=== PATIENT | male | born 1975 | race Hispanic/Latino ===

== ENCOUNTER 2017-10-04 20:17 | Emergency (ER) | payer OTHER ==
[2017-10-04 20:40] VITALS: BP 134/77; PULSE 86; RESP 16; TEMP 98; O2SAT 100
--- NOTE | 2017-10-04 21:02 | ED PDOC ---
Lower Extremity Pain/Injury Time Seen by Provider: 10/04/17 20:31 Chief Complaint (Nursing): Lower Extremity Problem/Injury Chief Complaint (Provider): Pain to Left Fifth Digit History Per: Patient History/Exam Limitations: no limitations Onset/Duration Of Symptoms: Mins (30 min prior to arrival) Current Symptoms Are (Timing): Still Present Additional Complaint(s): 42 y/o male, no PMH, presents to the ED complaining of pain to the left 5th digit with an onset of 30 minutes prior to arrival. Patient reports that prior to arrival he was playing basketball with his son barefoot, and when he was playing defense he unexpectedly stubbed his toe on the back of his son's shoe. Patient believes he broke his toe, especially after he started bleeding in the web spaces between his 4th and 5th digits on his left foot. Patient reports of no other complaints. Ambulating with a limp Past Medical History Reviewed: Historical Data, Nursing Documentation, Vital Signs Vital Signs: Last Vital Signs Temp 98.0 F 10/04/17 20:36 Pulse 86 10/04/17 20:36 Resp 16 10/04/17 20:36 BP 134/77 10/04/17 20:36 Pulse Ox 100 10/04/17 20:36 - Medical History PMH: No Chronic Diseases - Surgical History Surgical History: Appendectomy (2009) - Family History Family History: States: Unknown Family Hx - Living Arrangements Living Arrangements: With Family - Social History Current smoker - smoking cessation education provided: No Ex-Smoker (has not smoked in the last 12 months): No Alcohol: None Drugs: Denies - Home Medications Home Medications: Ambulatory Orders Medication Instructions Recorded Amoxicillin/Clavulanate [Augmentin 1 tab PO BID #14 tab 10/04/17 875 MG-125 MG] Ibuprofen [Motrin] 600 mg PO Q6 #20 tab 10/04/17 oxyCODONE/Acetaminophen [Percocet 1 ea PO Q6 PRN #5 tab 10/04/17 5/325 mg Tab] - Allergies Allergies/Adverse Reactions: Allergies Allergy/AdvReac Type Severity Reaction Status Date / Time No Known Allergies Allergy Verified 10/04/17 20:36 Review of Systems ROS Statement: Except As Marked, All Systems Reviewed And Found Negative Constitutional: Negative for: Fever Musculoskeletal: Positive for: Foot Pain (pain to the left 5th digit) Physical Exam - Reviewed Nursing Documentation Reviewed: Yes Vital Signs Reviewed: Yes - Physical Exam Appears: Positive for: Non-toxic, No Acute Distress Head Exam: Positive for: ATRAUMATIC Skin: Positive for: Normal Color Eye Exam: Positive for: Normal appearance Cardiovascular/Chest: Positive for: Regular Rate, Rhythm. Negative for: Murmur Respiratory: Negative for: Respiratory Distress Extremity: Positive for: Other (tender to the base of the 5th digit and dry blood betwwen the 4th and 5th digit) - ECG O2 Sat by Pulse Oximetry: 100 (RA) Pulse Ox Interpretation: Normal Medical Decision Making Medical Decision Making: Time: --20:46 Impression: --Injury toward left 5th digit rule out fracture Plan: --Foot Left 5th Digit X-ray: (+) Fracture to 5th Augmentin and percocet administered PO Reassess --Podiatry consult obtained and advised garrett dressing and crutch training. RICE therapy advised, as well and podiatry follow up next week. Scribe Attestation: Documented by Jian Poole acting as a scribe for SHANTEL Barrera. Disposition - Clinical Impression Clinical Impression: Toe fracture - Patient ED Disposition Is Patient to be Admitted: No - Disposition Referrals: Dustin Gibson DPM [Staff Provider] - Podiatry Clinic [Outside] Disposition: Routine/Home Disposition Time: 22:16 Condition: STABLE Prescriptions: Amoxicillin/Clavulanate [Augmentin 875 MG-125 MG] 1 tab PO BID #14 tab Ibuprofen [Motrin] 600 mg PO Q6 #20 tab oxyCODONE/Acetaminophen [Percocet 5/325 mg Tab] 1 ea PO Q6 PRN #5 tab PRN Reason: Pain, Severe (8-10) Instructions: Toe Fracture (ED) Forms: [facility] ([place]ian) - POA Present On Arrival: Falls Or Trauma
[2017-10-04] MEDS ORDERED: Amoxicillin-Clav 875-125 mg Tab PO STA (22:09)
[2017-10-04] MEDS ORDERED: Oxycodone/Acetaminophen 5/325 mg Tab PO STA (22:10)
[2017-10-04] MEDS ORDERED: Oxycodone/Acetaminophen 5/325 mg Tab ONE (22:13)
[2017-10-04] MEDS ORDERED: Amoxicillin-Clav 875-125 mg Tab PO ONE (22:13)
--- NOTE | 2017-10-05 09:58 | RAD ---
PROCEDURE: Radiographs of the left 5th toe. TECHNIQUE:: AP radiograph of the left foot, with oblique and lateral view of the left 5th toe. COMPARISON: None. FINDINGS: BONES: Nondisplaced transverse fracture through the 5th proximal phalanx metaphysis. JOINTS: Normal. SOFT TISSUES: Fifth proximal phalanx regional soft tissue swelling. OTHER FINDINGS: None. IMPRESSION: Nondisplaced transverse fracture through the 5th proximal phalanx metaphysis.
== END 2017-10-04 22:21 | disposition home or self-care (01) ==
LOC: H.ER 20:17
DX: S92.302A Fracture of unspecified metatarsal bone(s), left foot, initial encounter for closed fracture (principal); X50.9XXA Other and unspecified overexertion or strenuous movements or postures, initial encounter; Y92.310 Basketball court as the place of occurrence of the external cause